=== PATIENT | female | born 1965 | race Caucasian/White ===

== ENCOUNTER 2022-08-10 10:25 | Day surgery (SDC) | payer OTHER, SELFPAY ==
[2022-08-05 10:23] VITALS: BMI 40.1
--- NOTE | 2022-08-07 10:22 | MHC.SHP ---
Pre-Procedural Eval Section A Date of Service: 08/07/22 The patient is an INPATIENT: No Changes since office visit: No Cold of Flu in the past 2 weeks, No New Medical Problems, No Changes in Medication and No Patient answered all questions The History & Physical has been completed within 30 days and I have reviewed it.: Yes Section B Chief Complaint: Age-related nuclear cataract, left eye Allergies: Allergies Allergy/AdvReac Type Severity Reaction Status Date / Time clindamycin Allergy Severe Anaphylaxis Verified 08/05/22 10:14 Penicillins Allergy Severe Swelling-fa Verified 08/05/22 10:14 ce shellfish derived Allergy Severe Anaphylaxis Verified 08/05/22 10:14 aspirin Allergy Unknown Verified 08/05/22 10:14 Iodinated Contrast Media Allergy Unknown Verified 08/05/22 10:14 [IV Contrast Dye] latex Allergy Rash Verified 08/05/22 10:15 acetazolamide AdvReac Hypotension Verified 08/05/22 10:14 [From Diamox Sequels] timolol AdvReac Chest Pain Verified 08/05/22 10:14 dye Allergy Unknown Uncoded 08/05/22 10:14 Plan Diagnosis/Plan: Unchanged I have reviewed the history and physical and performed a pertinent physical examination on my patient. No changes have occurred unless specified. Time Spent With Patient Time: Total time managing care of this patient today ____ minutes.
[2022-08-10 11:37] LABS: Glucose, Whole Blood 177 mg/dL (60-115)
[2022-08-10 11:43] VITALS: BP 160/68; PULSE 76; RESP 18; TEMP 36.2; O2SAT 96
[2022-08-10] MEDS: Tetracaine HCl/PF 0.5% Oph Sol 4 ML DROPS 1 DROP EYE-LEFT (11:46)
[2022-08-10] MEDS: Lactated Ringers 500 ML 20 ML IVCONT (11:47)
[2022-08-10] MEDS: Cyclopentolate 1 % Ophth Sol 2 ML DRPBTL 1 DROP EYE-LEFT ×3 (11:48→11:58)
[2022-08-10] MEDS: Tropicamide 1 % Ophth Sol 3 ML BTL 1 DROP EYE-LEFT ×3 (11:50→11:59)
[2022-08-10] MEDS: Ketorolac Tromethamine 0.5% Op 5 ML DROPS 1 DROP EYE-LEFT ×3 (11:51→12:00)
[2022-08-10] MEDS: Phenylephrine HCL 2.5% Oph SoL 2 ML BOTTLE 1 DROP EYE-LEFT ×3 (11:52→12:01)
--- NOTE | 2022-08-10 12:18 | P.PCNO_ITS ---
Ophthalmology Procedure Procedure Date of Service: 08/10/22 Ophthalmology Viscoelastic: Anthony Gomezt Dual Pack Pro Ophthalmology Lenses: TECJAIRO [id number] (27) Procedure Notes: PREOPERATIVE DIAGNOSIS: Decreased visual acuity left eye secondary to cataract POSTOPERATIVE DIAGNOSIS: Same PROCEDURE: Left cataract extraction with intraocular lens insertion, synichialysis & capsulotomy with vision blue dye SURGEON: Terence Gonzalez M.D. ANESTHESIA: Topical/MAC ESTIMATED BLOOD LOSS: None COMPLICATIONS: None After obtaining informed consent, the patient was brought to the operation room suite and placed in the supine position. After adequate sedation per anesthesia, topical drops of Tetracaine were given to the left eye. The eye was then prepped and draped in the usual sterile fashion. The operating room microscope was then positioned over the operative eye and a lid speculum placed. A paracentesis was created. Viscoelastic was then instilled into the anterior chamber. A three plane incision was then created temporally, utilizing a 2.85 mm keratome.An air bubble was p laced into the anterior chamber followed by instillation of vision blue dye Capsulotomy forceps were then utilized to create a circular tear capsulotomy. Viscoelastic was utilized to perform a synichialysis. Hydrodissection and hydrodelineation were carried out until adequate mobilization of the nucleus occurred. Phacoemulsification was then utilized to remove the dense central nucleus followed by removal of the cortical material utilizing the automated aspiration irrigation unit. Viscoat elastic was instilled into the posterior capsular bag followed by placement of a posterior chamber intraocular lens without difficulty. The residual Viscoat elastic was then removed utilizing the automated IA machine. The wound was check and found to be watertight. The patient tolerated the procedure well and the lid speculum was removed. Intracameral injection of Vigamox 0.1 mL followed by a subtenon injection of Kenalog-40 0.2 mL were administered. The patient will be seen in the a.m.
--- NOTE | 2022-08-10 12:24 | P.CONAN_ITS ---
[facility] Past Medical History Medical History Anxiety Cataract CHF (congestive heart failure) Depressive disorder Diabetes mellitus Diabetic neuropathy Diabetic retinopathy Environmental and seasonal allergies Glaucoma Hypertension Legally blind Numbness of finger Rubeosis iridis Family History Family history of problems with anesthesia: No Surgical History Surgical History History of vitrectomy Hx of tonsillectomy History of Problems with Anesthesia: No Social History Social History Are you a primary aged or disabled carer to a significant other at home: No Do you presently have visiting nurse or other home services: Yes (daughter is primary aged or disabled carer, lives nearby) Patient Tobacco Use Status: Former Tobacco user Quit Date: 2021 Use of substances other than those prescribed or required for medical reasons: No Are you DNR?: No Advance Directives: No Advance Directives Information Provided: Yes Advance Directives on File: No Nutrition Risks: Dental problems Poor oral hygiene: Yes (per daughter bad teeth some cracked and broken) Meds Allergies Allergy/AdvReac Type Severity Reaction Status Date / Time clindamycin Allergy Severe Anaphylaxis Verified 08/10/22 11:36 Penicillins Allergy Severe Swelling-fa Verified 08/10/22 11:36 ce shellfish derived Allergy Severe Anaphylaxis Verified 08/10/22 11:36 aspirin Allergy Unknown Verified 08/10/22 11:36 Iodinated Contrast Media Allergy Unknown Verified 08/10/22 11:36 [IV Contrast Dye] latex Allergy Rash Verified 08/10/22 11:36 acetazolamide AdvReac Hypotension Verified 08/10/22 11:36 [From Diamox Sequels] timolol AdvReac Chest Pain Verified 08/10/22 11:36 dye Allergy Unknown Uncoded 08/05/22 10:14 Active Medications: Current Medications Lactated Ringer's (Lr) 500 mls @ 20 mls/hr IVCONT .Q24H PONCHO Last Admin: 08/10/22 11:47 Dose: 20 mls/hr Povidone Iodine (Povidone Iodine 5 % Ophth Soln 30 Ml Bottle) 1 appl EYE-LEFT PREOP PRN PRN Reason: Pre-Op Surgical Implant Prophy Home Medications Medication Instructions Recorded Confirmed Last Taken Type atorvastatin 20 mg tablet 1 tab PO DAILY 08/05/22 08/05/22 Unknown History brimonidine 0.2 % eye drops 1 drp ophthalmic (eye) BID 08/05/22 08/05/22 Unknown History bupropion HCl 150 mg 24 hr tablet, 1 tab PO QAM 08/05/22 08/05/22 Unknown History extended release carbamide peroxide 6.5 % ear drops drp otic (ear) left 08/05/22 Unknown History (Ear Drops (carbamide peroxide)) cetirizine 10 mg tablet 1 tab PO DAILY 08/05/22 08/05/22 Unknown History clonazepam 0.5 mg tablet 1 tab PO BID PRN anxiety 08/05/22 08/05/22 08/10/22 07:00 History diclofenac sodium 1 % topical gel g topical BID 08/05/22 Unknown History dorzolamide 2 % eye drops 1 drp ophthalmic (eye) BID 08/05/22 08/05/22 Unknown History dulaglutide 1.5 mg/0.5 mL mg subcut QWEEK 08/05/22 08/05/22 Unknown History subcutaneous pen injector (Trulicity) famotidine 40 mg tablet 1 tab PO DAILY 08/05/22 08/05/22 Unknown History furosemide 20 mg tablet 1 tab PO DAILY 08/05/22 08/05/22 Unknown History glipizide 10 mg tablet 1 tab PO BID 08/05/22 08/05/22 Unknown History insulin degludec 200 unit/mL (3 unit subcut BID 08/05/22 Unknown History mL) subcutaneous pen (Tresiba FlexTouch U-200 insulin) insulin lispro 200 unit/mL (3 mL) subcut 08/05/22 Unknown History subcutaneous pen (Humalog KwikPen U-200 Insulin) ipratropium bromide 0.02 % inhalation 08/05/22 Unknown History solution for inhalation losartan 100 1 tab PO DAILY 08/05/22 08/05/22 Unknown History mg-hydrochlorothiazide 12.5 mg tablet metformin 500 mg tablet 1 tab PO QID 08/05/22 08/05/22 Unknown History metoprolol succinate 100 mg 1 tab PO DAILY 08/05/22 08/05/22 08/10/22 07:00 History tablet,extended release 24 hr mirtazapine 15 mg tablet 1 - 2 tab PO BEDTIME 08/05/22 08/05/22 Unknown History Exam Exam Date and Time: August 10, 2022 1224 Height,Weight and Vital Signs: Height 5 ft 7 in Weight 116.12 kg Last Vital Signs Temp 97.1 F 08/10/22 11:43 Pulse 76 08/10/22 11:43 Resp 18 08/10/22 11:43 BP 160/68 H 08/10/22 11:43 Pulse Ox 96 08/10/22 11:43 O2 Del Method 08/10/22 11:43 Pertinent Lab Results Pertinent Lab Results: Laboratory Tests 08/10/22 11:33 POC Glucose 177 H Airway Mallampati Class: II TM Dist: >3cm Neck ROM: Full Heart: rrr Lungs: cta Assessment and Plan Assessment Anesthesia Assessment: Anesthesia Plan Discussed and Chart Reviewed Final Anesthetic Review Family History of Problems with Anesthesia: No History of Problems with Anesthesia: No NPO: Yes ASA Class: III Final Preanesthetic Review: No Changes in Pt Med Stat, Meds/Allgs Chart Reviewed and Consent Obtained/Reviewed Patient Risk: Intermediate Procedure Risk: Low Anesthetic Plan Anesthetic Plan: MAC: Disposition: Standard PACU
[2022-08-10 12:54] VITALS: BP 164/77; PULSE 71; RESP 16; TEMP 36.6; O2SAT 96
== END 2022-08-10 13:00 | disposition home or self-care (01) ==
PROVIDERS: PCP Physician Assistant Medical; Visit Provider Ophthalmology
PROC: (CPT 66985; principal; 2022-08-10 13:00)
DX: H25.12 Age-related nuclear cataract, left eye (principal); H54.7 Unspecified visual loss; E11.319 Type 2 diabetes mellitus with unspecified diabetic retinopathy without macular edema; H40.89 Other specified glaucoma; Z83.511 Family history of glaucoma; E11.40 Type 2 diabetes mellitus with diabetic neuropathy, unspecified; I11.0 Hypertensive heart disease with heart failure; I50.9 Heart failure, unspecified; J45.40 Moderate persistent asthma, uncomplicated; Z79.4 Long term (current) use of insulin; Z79.899 Other long term (current) drug therapy; Z88.0 Allergy status to penicillin; Z88.1 Allergy status to other antibiotic agents; Z91.041 Radiographic dye allergy status; Z87.891 Personal history of nicotine dependence
CPT/HCPCS: 66984; 82947; J2250; J3301; V2632

== ENCOUNTER 2023-03-29 11:59 | Outpatient (REF) | payer MEDICAID, SELFPAY ==
[2023-03-29 12:15] VITALS: BMI 39.8
[2023-03-29 13:13] VITALS: BP 171/84; PULSE 70; RESP 16; TEMP 36.2; O2SAT 98
== END 2023-03-29 12:00 | disposition home or self-care (01) ==
LOC: HO.MS 11:59
PROVIDERS: PCP Physician Assistant Medical; Visit Provider Ophthalmology
PROC: (CPT 66821; principal; 2023-03-29 13:00)
DX: H26.492 Other secondary cataract, left eye (principal); I10 Essential (primary) hypertension; E11.9 Type 2 diabetes mellitus without complications
CPT/HCPCS: 66821

== ENCOUNTER 2023-04-05 08:11 | Day surgery (SDC) | payer MEDICAID, SELFPAY ==
[2023-04-02 11:06] VITALS: BMI 45.9
--- NOTE | 2023-04-02 12:44 | MHC.SHP ---
Pre-Procedural Eval Section A Date of Service: 04/02/23 The patient is an INPATIENT: No Changes since office visit: No Cold of Flu in the past 2 weeks, No New Medical Problems, No Changes in Medication and No Patient answered all questions The History & Physical has been completed within 30 days and I have reviewed it.: Yes Section B Chief Complaint: Age-related nuclear cataract, right eye Allergies: Allergies Allergy/AdvReac Type Severity Reaction Status Date / Time aspirin Allergy Severe Anaphylaxis Verified 04/02/23 11:06 clindamycin Allergy Severe Anaphylaxis Verified 04/02/23 11:06 Iodinated Contrast Media Allergy Severe Anaphylaxis Verified 04/02/23 11:06 [IV Contrast Dye] Penicillins Allergy Severe Swelling-fa Verified 04/02/23 11:06 ce shellfish derived Allergy Severe Anaphylaxis Verified 04/02/23 11:06 epinephrine Allergy Unknown Verified 04/02/23 11:06 erythromycin base Allergy Unknown Verified 04/02/23 11:06 insulin glargine Allergy excessive Verified 04/02/23 11:06 sweating, vertigo, bloody eyes latex Allergy Rash Verified 08/10/22 11:36 acetazolamide AdvReac Hypotension Verified 08/10/22 11:36 [From Diamox Sequels] empagliflozin AdvReac vaginal Verified 04/02/23 11:06 itching, dysuria timolol AdvReac Chest Pain Verified 04/02/23 11:06 dye Allergy Unknown Uncoded 08/05/22 10:14 Plan Diagnosis/Plan: Unchanged I have reviewed the history and physical and performed a pertinent physical examination on my patient. No changes have occurred unless specified. Time Spent With Patient Time: Total time managing care of this patient today ____ minutes.
[2023-04-05 08:40] LABS: Glucose, Whole Blood 170 mg/dL (60-115)
[2023-04-05 08:41] VITALS: BP 174/85; PULSE 76; RESP 20; TEMP 36.6; O2SAT 98
--- NOTE | 2023-04-05 09:01 | P.CONAN_ITS ---
HPI - Anesthesia Eval Consult details Narrative: 58 F for right cataract extraction PMFSH Past Medical History Medical History Legally blind Cataract Rubeosis iridis Glaucoma Diabetic retinopathy Depressive disorder Anxiety Numbness of finger Diabetic neuropathy CHF (congestive heart failure) Hypertension Diabetes mellitus Environmental and seasonal allergies Functional capacity: uses cane/walker Family History Family history of problems with anesthesia: No Surgical History Surgical History (Updated 04/02/23 @ 11:14 by Nguyen Huerta RN) H/O cataract extraction Hx of tonsillectomy History of vitrectomy History of Problems with Anesthesia: No Social History Social History Are you a primary aged or disabled care worker to a significant other at home: No Do you presently have visiting nurse or other home services: Yes (daughter is primary aged or disabled care worker, lives nearby) Patient Tobacco Use Status: Former Tobacco user Quit Date: 2021 Are you DNR?: No Advance Directives: No Advance Directives Information Provided: Yes Meds Allergies Allergy/AdvReac Type Severity Reaction Status Date / Time aspirin Allergy Severe Anaphylaxis Verified 04/02/23 11:06 clindamycin Allergy Severe Anaphylaxis Verified 04/02/23 11:06 Iodinated Contrast Media Allergy Severe Anaphylaxis Verified 04/02/23 11:06 [IV Contrast Dye] Penicillins Allergy Severe Swelling-fa Verified 04/02/23 11:06 ce shellfish derived Allergy Severe Anaphylaxis Verified 04/02/23 11:06 epinephrine Allergy Unknown Verified 04/02/23 11:06 erythromycin base Allergy Unknown Verified 04/02/23 11:06 insulin glargine Allergy excessive Verified 04/02/23 11:06 sweating, vertigo, bloody eyes latex Allergy Rash Verified 08/10/22 11:36 acetazolamide AdvReac Hypotension Verified 08/10/22 11:36 [From Diamox Sequels] empagliflozin AdvReac vaginal Verified 04/02/23 11:06 itching, dysuria timolol AdvReac Chest Pain Verified 04/02/23 11:06 dye Allergy Unknown Uncoded 08/05/22 10:14 Home Medications Medication Instructions Recorded Confirmed Last Taken Type atorvastatin 20 mg tablet 1 tab PO DAILY 08/05/22 04/02/23 Unknown History brimonidine 0.2 % eye drops 1 drp ophthalmic (eye) BID 08/05/22 08/05/22 Unknown History bupropion HCl 150 mg 24 hr tablet, 1 tab PO QAM 08/05/22 04/02/23 Unknown History extended release carbamide peroxide 6.5 % ear drops drp otic (ear) left 08/05/22 Unknown History (Ear Drops (carbamide peroxide)) cetirizine 10 mg tablet 1 tab PO DAILY 08/05/22 04/02/23 Unknown History clonazepam 0.5 mg tablet 1 tab PO BID PRN anxiety 08/05/22 04/02/23 04/05/23 Hi story diclofenac sodium 1 % topical gel g topical BID 08/05/22 Unknown History dorzolamide 2 % eye drops 1 drp ophthalmic (eye) BID 08/05/22 08/05/22 Unknown History dulaglutide 1.5 mg/0.5 mL mg subcut QWEEK 08/05/22 08/05/22 Unknown History subcutaneous pen injector (Trulicity) famotidine 40 mg tablet 1 tab PO DAILY 08/05/22 04/02/23 Unknown History furosemide 20 mg tablet 1 tab PO DAILY 08/05/22 04/02/23 Unknown History glipizide 10 mg tablet 1 tab PO BID 08/05/22 08/05/22 Unknown History insulin degludec 200 unit/mL (3 unit subcut BID 08/05/22 Unknown History mL) subcutaneous pen (Tresiba FlexTouch U-200 insulin) insulin lispro 200 unit/mL (3 mL) subcut 08/05/22 Unknown History subcutaneous pen (Humalog KwikPen U-200 Insulin) ipratropium bromide 0.02 % inhalation 08/05/22 Unknown History solution for inhalation losartan 100 1 tab PO DAILY 08/05/22 04/02/23 Unknown History mg-hydrochlorothiazide 12.5 mg tablet metformin 500 mg tablet 1 tab PO QID 08/05/22 04/02/23 Unknown History metoprolol succinate 100 mg 1 tab PO DAILY 08/05/22 04/02/23 04/05/23 History tablet,extended release 24 hr mirtazapine 15 mg tablet 1 - 2 tab PO BEDTIME 08/05/22 04/02/23 Unknown History Exam Exam Date and Time: April 05, 2023900 Height,Weight and Vital Signs: Height 5 ft 3 in Weight 117.571 kg Last Vital Signs Temp 98 F 04/05/23 08:41 Pulse 76 04/05/23 08:41 Resp 20 04/05/23 08:41 BP 174/85 H 04/05/23 08:41 Pulse Ox 98 04/05/23 08:41 O2 Del Method Room Air 04/05/23 08:41 Pertinent Lab Results Pertinent Lab Results: Laboratory Tests 04/05/23 08:37 POC Glucose 170 H Airway Mallampati Class: IV Assessment and Plan Assessment Anesthesia Assessment: Anesthesia Plan Discussed and Chart Reviewed Final Anesthetic Review Family History of Problems with Anesthesia: No History of Problems with Anesthesia: No NPO: Yes ASA Class: III Final Preanesthetic Review: Meds/Allgs Chart Reviewed, Consent Obtained/Reviewed and Anes Risks/Benef Reviewed Patient Risk: Intermediate Procedure Risk: Intermediate Anesthetic Plan Anesthetic Plan: MAC: and Agree w/ Assess. and Plan Disposition: Standard PACU
--- NOTE | 2023-04-05 09:53 | HO.PNOPHT ---
Ophthalmology Procedure Procedure Date of Service: 04/05/23 Ophthalmology Viscoelastic: Healadrainna Gomezt Dual Pack Pro Ophthalmology Lenses: TECNIS [id number] (26.5) Procedure Notes: PREOPERATIVE DIAGNOSIS: Decreased visual acuity right eye secondary to cataract POSTOPERATIVE DIAGNOSIS: Same PROCEDURE: Right cataract extraction with intraocular lens insertion with synichialysis SURGEON: Terence Gonzalez M.D. ANESTHESIA: Topical/MAC ESTIMATED BLOOD LOSS: None COMPLICATIONS: None After obtaining informed consent, the patient was brought to the operating room suite and placed in the supine position. After adequate sedation per anesthesia, topical drops of Tetracaine were given to the right eye. The eye was then prepped and draped in the usual sterile fashion. The operating room microscope was then positioned over the operative eye and a lid speculum placed. A paracentesis was created. Viscoelastic was then instilled into the anterior chamber preforming a synichialysis. A three plane incision was then created temporally, utilizing a 2.85 mm keratome. Capsulotomy forceps were then utilized to create a circular tear capsulotomy. Hydrodissection and hydrodelineation were carried out until adequate mobilization of the nucleus occurred. Phacoemulsification was then utilized to remove the dense central nucleus followed by removal of the cortical material utilizing the automated aspiration irrigation unit. Viscoelastic was instilled into the posterior capsular bag followed by placement of a posterior chamber intraocular lens without difficulty. The residual Viscoelastic was then removed utilizing the automated IA machine. The wound was checked and found to be watertight. The patient tolerated the procedure well and the lid speculum was removed. Intracameral injection of Vigamox 0.1 mL followed by a subtenon injection of Kenalog-40 0.2 mL were administered. The patient will be seen in the a.m.
[2023-04-05 10:18] VITALS: BP 173/88; PULSE 72; RESP 17; TEMP 36.4; O2SAT 99
== END 2023-04-05 10:35 | disposition home or self-care (01) ==
PROVIDERS: PCP Physician Assistant Medical; Visit Provider Ophthalmology
PROC: (CPT 66985; principal; 2023-04-05 10:00)
DX: H25.11 Age-related nuclear cataract, right eye (principal); H54.7 Unspecified visual loss; E11.9 Type 2 diabetes mellitus without complications; I11.0 Hypertensive heart disease with heart failure; I50.9 Heart failure, unspecified; J45.909 Unspecified asthma, uncomplicated; Z87.891 Personal history of nicotine dependence; Z79.899 Other long term (current) drug therapy; Z79.4 Long term (current) use of insulin
CPT/HCPCS: 66984; 82947; J2250; J3010; J3301; V2632

== ENCOUNTER 2025-06-07 08:50 | Outpatient (AMB) | payer MEDICARE, MEDICAID, SELFPAY ==
--- NOTE | 2025-06-07 08:53 | MHC.OFFVIS ---
Vital Signs 06/07/25 08:58 Height 5 ft 7 in Weight 250 lb BMI 39.2 BP 214/100 H Blood Pressure Location Lt brachial Position Sitting Pulse 80 Pulse Source Pulse Oximeter Pulse Oximetry (%) 97 Oxygen Delivery Method Room Air Intake Visit Reasons: Diabetic Polyneuropathy Intake Note: Pain today 04/27 [facility] [employer] Required: No [facility] Name: Freddy- Daughter Accompanied by: Daughter Allergies aspirin Allergy (Severe, Verified 06/07/25 09:07) Anaphylaxis clindamycin Allergy (Severe, Verified 06/07/25 09:07) Anaphylaxis Iodinated Contrast Media (IV Contrast Dye) Allergy (Severe, Verified 06/07/25 09:07) Anaphylaxis Penicillins Allergy (Severe, Verified 06/07/25 09:07) Swelling-face shellfish derived Allergy (Severe, Verified 04/02/23 11:06) Anaphylaxis epinephrine Allergy (Verified 06/07/25 09:07) Unknown erythromycin base Allergy (Verified 04/02/23 11:06) Unknown insulin glargine Allergy (Verified 06/07/25 09:07) excessive sweating, vertigo, bloody eyes latex Allergy (Verified 06/07/25 09:07) Rash acetazolamide (From Diamox Sequels) Adverse Reaction (Verified 08/10/22 11:36) Hypotension empagliflozin Adverse Reaction (Verified 04/02/23 11:06) vaginal itching, dysuria timolol Adverse Reaction (Verified 04/02/23 11:06) Chest Pain dye Allergy (Uncoded 08/05/22 10:14) Unknown HPI Comments Details: The patient is a 60 year old individual presenting for management of chronic painful diabetic neuropathy, which began in March 2019 and has worsened over time. The pain is constant, occurs all day but is more severe at night, and affects sleep. The patient describes the pain as burning and tingling, and it extends up to the middle of the lower legs. The patient's last HbA1c was 9.0. For pain management, the patient has tried a lidocaine patch and Tylenol, which provides minimal relief. A past trial of gabapentin in [place] was discontinued due to gastrointestinal side effects, including vomiting. The patient's past medical history is significant for being legally blind with a history of cataract surgery on both eyes, eye shunts, and glaucoma. The patient reports a history of eye bleeds with movement, requiring sleep with the head elevated. Other comorbidities include asthma, congestive heart failure, hypertension, depression, and anxiety, for which the patient sees a psychiatrist. The patient also reports occasional back pain. - Onset and Timing: The pain started in March 2019 and is constant throughout the day, worsening at night. - Quality and Character: Described as burning, tingling, sharp, throbbing, pinching, cramping, tight, tugging, and a cold or freezing sensation. - Primary Location and Radiation: The pain affects both feet and extends up to the middle of the lower legs. - Functional Interference: The pain significantly disrupts sleep. - Affect: The patient's chronic pain interferes with sleep. - Analgesia: The patient is currently using a lidocaine patch, which is only slightly effective. - Adverse Effects: A previous trial of gabapentin was stopped due to gastrointestinal side effects, including vomiting and gastritis. - Activities of Daily Living: The patient is unable to sleep due to the pain. - Aberrant Drug Related Behaviors: No aberrant drug-related behaviors were discussed. [facility] Medical History (Updated 06/08/25 @ 08:13 by AUGUSTINE Rivas) Low back pain Dermatophytosis of nail Pain in toe of left foot Pain in toe of right foot Legally blind Cataract Rubeosis iridis Glaucoma Diabetic retinopathy Depressive disorder Anxiety Numbness of finger Diabetic neuropathy CHF (congestive heart failure) Hypertension Diabetes mellitus Environmental and seasonal allergies Surgical History H/O cataract extraction Hx of tonsillectomy History of vitrectomy Social History Are you a primary long term acute care registered nurse to a significant other at home: No Do you presently have visiting nurse or other home services: Yes (daughter is primary long term acute care registered nurse, lives nearby) Alcohol intake: never Patient Tobacco Use Status: Former Tobacco user Review of Systems Const Details: - Ophthalmologic: Reports being legally blind with a history of cataract surgery, glaucoma, and shunts in the eyes. - Gastrointestinal: Reports a history of vomiting and gastritis with gabapentin use. - Musculoskeletal: Reports occasional back and right knee pain. - Neurological: Reports constant, bilateral foot pain that worsens at night and interferes with sleep. - The pain is described as burning, tingling, sharp, throbbing, pinching, cramping, and is associated with a cold sensation, extending to the mid-lower leg. - Psychiatric: Reports depression and anxiety and is followed by a Psychiatrist. - Integumentary: Denies any open wounds or rash on the feet. All systems reviewed & are unremarkable except as noted in HPI and below Physical Exam Vital Signs: Last Vital Signs Pulse 80 06/07/25 08:58 BP 214/100 H 06/07/25 08:58 Pulse Ox 97 06/07/25 08:58 Oxygen Delivery Method Room Air 06/07/25 08:58 BMI result Body Mass Index 39.2 General: Appears afebrile. Alert and oriented. Mood and affect appropriate. Follows and participates in conversation appropriately. Respiratory effort is unlabored. No cough. Able to transition from sit to stand unassisted. Uses cane with ambulation. Ambulates with bilaterally normal heel strike and toe off. Back/Spine/Pelvis Cervical Spine: cervical ROM normal, cervical muscular tenderness and No Cervical spine tenderness Thoracic/Lumbar Spine: thoracic and lumbar spine normal to inspection, No Thoracic/lumbar spine scar(s), Lasegue's sign negative, straight leg raise negative bilaterally, pain with thoraco-lumbar ROM, thoraco-lumbar ROM limited, No thoracic spinal tenderness and No lumbar spinal tenderness Extrem Other: There is a decreased sensation over the soles of both feet and toes. Reports numbness, burning, tingling and bilateral foot pain, worse at night time. No breaks in the skin. No soft tissue swelling or warmth. +2 pedal pulses bilaterally. General: Yes capillary refill normal, Yes no clubbing, cyanosis or edema and Yes no calf tenderness Results Reviewed Results Reviewed: No imaging reports or EMG studies are available for review today. Assessment & Plan Assessment & Plan (1) Chronic painful diabetic neuropathy: Code(s): E11.40 - Type 2 diabetes mellitus with diabetic neuropathy, unspecified Category: Medical (2) Chronic pain of both feet: Code(s): M79.671 - Pain in right foot; M79.672 - Pain in left foot; G89.29 - Other chronic pain Category: Medical (3) Low back pain: Code(s): M54.50 - Low back pain, unspecified Category: Medical Plan Discuss risks and benefits of different treatment options including epidural steroid injections, topical 8% capsaicin application and spinal cord stimulation, contingent improvement in the patient's glycemic control to an HbA1c of less than 7.5 for interventional treatments. The plan for managing the patient's chronic painful diabetic neuropathy was discussed. Qutenza, an 8% capsaicin topical patch administered every three months, was offered as a treatment option. However, this procedure is contingent upon insurance approval. If Qutenza is approved, the patient will be prescribed EMLA cream to apply at home before the procedure. The patient and family were provided with informational brochures on Qutenza and SCS trial in both [place] and Sinhala. Duloxetine was suggested as an oral medication that could help both the neuropathy and depression, though it was noted that it only comes in capsule form, which may be an issue for the patient. All questions and concerns have been answered and patient agreed with the treatment plan. Follow up for Qutenza and sooner as needed. Patient was informed and verbally consented to the use of an ambient scribe for clinic note documentation during this visit. Coding Level of Care Code New Pt Level 4 (88309) Diagnoses Chronic painful diabetic neuropathy E11.40 Chronic pain of both feet M79.671; M79.672; G89.29 Low back pain M54.50
[2025-06-07 08:58] VITALS: BP 214/100; PULSE 80; O2SAT 97; BMI 39.2
--- OUTSIDE RECORDS SUMMARY | 2025-06-07 10:23 | XMS_ITS | Data Portability ---
Author Organization [place] - [facility], Allergy Address [address] [address] Assessment Encounter Date Assessment Date Assessment LastModified by Organization Details LastModified Time 12/29/2024 12/29/2024 59-year-old alissa james presents for evaluation of left-sided hearing loss. Otologic exam is fairly unremarkable. Audiometric testing was obtained today showing profound hearing loss of the left ear. Mild mixed hearing loss on the right side. Results were reviewed with patient and her daughter. Given significant asymmetry I would highly recommend an MRI of the IAC to rule out retrocochlear pathology. Patient is very hesitant to have MRI done with her eye history. She has been cleared to have an MRI by her hotel or motel receptionist but she is claustrophobic. She does not want to travel for open MRI. Offered a CT instead though it is less sensitive for retrocochlear pathology. She declines this option as well. She will call if she reconsiders these options. Would recommend repeat audiometric testing in 6 months to ensure stability. She would be a candidate for a cochlear implant but this would not be covered by her Medicare insurance. Instead, recommended cross versus by cross and she was provided a copy of her hearing test along with medical clearance. Her daughter will help her work through these options. Will call if she has any other acute changes in hearing. All questions were answered. [email or web address] Not available 12/29/2024 11:46:45 12/29/2024 12/29/2024 Follow up with referring provider. [email or web address] Not available 12/29/2024 10:36:08 Plan of Treatment Reminders Order Date Submit Date Provider Last Modified By Organization Details Last Modified Time Details Appointments Hearing Test 2025 11:00A M Hearing Test Not available Not available Not available Establish ed 15 2025 11:30A M MAURY DEAN PA-C Not available Not available Not available Lab None recorded. Referral None recorded. Procedures None recorded. Surgeries None recorded. Imaging None recorded. Medication Orders None recorded. Patient TargetsNo targets recorded. Patient InstructionsNo instructions recorded. Reason for Referral None Reported. Results Created Date Observation Date Name Description Value Unit Range Abnormal Flag Note LastModifiedBy Organization Detail LastModifiedTime 12/30/19 25 audio gram No observ ation record ed. BARCODE Not Available 2024 14:43:42 Result Notes None recorded. Problems Name Problem SNOMED Code Status Onset Date Resolution Date Notes Provider Name and Address Organization Details Recorded Time Mixed conductive AND sensorineural hearing loss 85636976 Active 2024 GABBI SILVA MA, [facility] [address] [place] [address], [place], [address], [facility] [place] [facility] 10:38:05 Bilateral hearing loss 21005104 Active 2024 GABBI SILVA MA, [place] [address], [place], [address], [facility] [place] [facility] 5 10:38:35 Problem Notes None recorded. Procedures Surgical History Date Name Laterality Status Provider Name and Address Organization Details Recorded Time 12/29/2024 Comp Audio with Tymps - 31719 & 88301 completed GABBI SILVA [facility], [facility] [address] [place] [address],[address], [address], [facility] [place] [facility] 12/29/2024 10:36:08 Imaging Results None recorded. Procedure Notes None recorded. Medical Equipment None Reported. Allergies Allergen ID Allergen Name Allergen Category Reaction Reaction Severity Criticality Documentation Date Start Date Code Code System Note Provider Name and Address Organization Details Recorded Time 463253 aspirin medicatio n Not available Not available Not available 12/29/2024 1191 RxNorm Liliana norman [place] [facility] 5 10:29:09 700364 clindamyc in Not available Not available Not available Not available 12/29/2024 2582 RxNorm Liliana norman [place] - [facility] 10:29:15 776469 Iodinated contrast media (substanc e) medicatio n Not available Not available Not available 12/29/2024 36957 2003 SNOMED Liliana Garcia emerson, [place] - [facility] 10:29:25 391135 Product containin g penicilli n (product) medicatio n Not available Not available Not available 12/29/2024 46404 8001 SNOMED Liliana Garcia em[place], [place] - [facility] 10:29:31 550306 empaglifl ozin medicatio n Not available Not available Not available 12/29/2024 41378 53 RxNorm Liliana Garcia em[place], [place] - [facility] 10:29:40 338332 epinephri ne medicatio n Not available Not available Not available 12/29/2024 3992 RxNorm Liliana Garcia em[place], [place] - [facility] 10:29:46 845669 erythromy madhu medicatio n Not available Not available Not available 12/29/2024 4053 RxNorm Liliana Garcia emerson, [place] - [facility] 10:29:58 435587 insulin glargine medicatio n Not available Not available Not available 12/29/2024 28823 3 RxNorm Liliana Garcia emerson, [place] - [facility] 10:30:07 956697 timolol medicatio n Not available Not available Not available 12/29/2024 73667 RxNorm Liliana Garcia emerson, [place] - [facility] 10:30:14 220708 shellfish derived food,medi cation Not available Not available Not available 12/29/2024 Liliana Jose emerson, [facility] [place] [facility] 10:30:21 Medications Name Sig Start Date Stop Date Status Note LastModified by Organization Details LastModified Time metformin 500 mg tablet TAKE 1 TABLET BY MOUTH 4 (FOUR) TIMES DAILY BEFORE MEALS AND AT BEDTIME 12/29 completed Not Available Not Available Not Available atorvastati n 20 mg tablet TAKE 1 TABLET BY MOUTH EVERY EVENING FOR colestero l active Not Available Not Available No t Available cetirizine 10 mg tablet TAKE 1 TABLET BY MOUTH ONCE DAILY active Not Available Not Available No t Available famotidine 40 mg tablet TAKE 1 TABLET BY MOUTH ONCE DAILY active Not Available Not Available No t Available clonazepam 0.5 mg tablet TAKE 1 TABLET BY MOUTH two (2) times a day NEEDED FOR ANXIETY active Not Available Not Available No t Available Alcohol Pads USE TO TEST FINGER STICK BLOOD SUGAR 3 (THREE) TIMES A DAY 12/29 completed Not Available Not Available Not Available metoprolol succinate ER 100 mg tablet,exte nded release 24 hr TAKE 1 TABLET BY MOUTH EVERY MORNING active Not Available Not Available No t Available sulfamethox azole 800 mg-trimetho prim 160 mg tablet TAKE 1 TABLET BY MOUTH two (2) times a day FOR 3 DAYS 12/29 completed Not Available Not Available Not Available furosemide 20 mg tablet TAKE 1 TABLET BY MOUTH EVERY MORNING active Not Available Not Available No t Available mirtazapine 15 mg tablet TAKE 1 TO 2 TABLETS BY MOUTH AT BEDTIME 12/29 completed Not Available Not Available Not Available insulin lispro (U-100) 100 unit/mL subcutaneou s solution Use with CSII up to 100 units daily with Omnipod 5 will complete PA if needed, replacing Fiasp vials 12/29 completed Not Available Not Available Not Available polyethylen e glycol 3350 17 gram/dose oral powder MIX 17 gramos IN WATER AND DRINK BY MOUTH ONCE DAILY active Not Available Not Available No t Available metformin ER 500 mg tablet,exte nded release 24 hr TAKE 2 TABLETS BY MOUTH two (2) times a day WITH A MEAL active Not Available Not Available No t Available ipratropium bromide 0.02 % solution for inhalation INHALE THE CONTENT OF 1 VIAL (2.5mls) VIA NEBULIZER 4 (FOUR) TIMES DAILY active Not Available Not Available No t Available buspirone 15 mg tablet TAKE 1 TABLET BY MOUTH ONCE DAILY active Not Available Not Available No t Available neomycin-po lymyxin-hyd rocort 3.5 mg-10,000 unit/mL-1 % ear drops,susp INSTILL 4 DROP INTO THE LEFT EAR 3 (THREE) TIMES A DAY FOR 10 DAYS active Not Available Not Available No t Available insulin lispro (U-100) 100 unit/mL subcutaneou s pen Inject 5-35 Units into the skin 3 (three) times daily before meals According to sliding scale (max 105 units/day ) keep on hold until pt calls if Omnipod is nonfuncti onal active Not Available Not Available No t Available bupropion HCl XL 150 mg 24 hr tablet, extended release TAKE 1 TABLET BY MOUTH ONCE DAILY IN THE MORNING active Not Available Not Available No t Available Novofine Autocover 30 gauge x 1/3 needle USE 4 (FOUR) TIMES DAILY BEFORE MEALS AND AT BEDTIME active Not Available Not Available No t Available losartan 100 mg-hydrochl orothiazide 12.5 mg tablet TAKE 1 TABLET BY MOUTH EVERY MORNING FOR presion active Not Available Not Available No t Available BD Ultra-Fine Short Pen Needle 31 gauge x 5/16 Use to administe r insulin up to 4 times daily (BD Ultra Fine Short 8 mm) 12/29 completed Not Available Not Available Not Available FreeStyle Lite Strips USE TO TEST FINGER STICK BLOOD SUGAR 3 (THREE) TIMES A DAY 12/29 completed Not Available Not Available Not Available diclofenac 1 % topical gel APPLY TO THE AFFECTED AREA TOPICALLY two (2) times a day active Not Available Not Available No t Available Comfort EZ Insulin Syringe 0.5 mL 31 gauge x 5/16 USE DIRECTED UP TO 3 (THREE) TIMES A DAY 12/29 completed Not Available Not Available Not Available Inject Ease Lancets 28 gauge USE TO TEST FINGER STICK BLOOD SUGAR 3 (THREE) TIMES A DAY 12/29 completed Not Available Not Available Not Available Farxiga 5 mg tablet TAKE 1 TABLET BY MOUTH EVERY MORNING. TAKE WITH MUCHO WATER active Not Available Not Available No t Available insulin degludec (U-200) 200 unit/mL (3 mL) subcutaneou s pen INJECT 76 UNITS SUBCUTANE OUSLY two (2) times a day active Not Available Not Available No t Available Fiasp U-100 Insulin 100 unit/mL subcutaneou s solution Use with CSII up to 100 units daily with Omnipod 5 use these for Omnipod active Not Available Not Available No t Available Fiasp FlexTouch U-100 Insulin 100 unit/mL (3 mL) subcutaneou s pen INJECT 5 TO 35 UNITS SUBCUTANE OUSLY 3 (THREE) TIMES A DAY BEFORE MEALS UP TO 105 UNITS ONCE DAILY active Not Available Not Available No t Available Dexcom G6 Transmitter device APPLY TOPICALLY EVERY 3 12/29 completed Not Available Not Available Not Available Trulicity 3 mg/0.5 mL subcutaneou s pen injector INJECT THE CONTENT OF 1 syringe SUBCUTANE OUSLY EACH WEEK 12/29 completed Not Available Not Available Not Available Mounjaro 7.5 mg/0.5 mL subcutaneou s pen injector INJECT THE CONTENT OF 1 syringe SUBCUTANE OUSLY EACH WEEK (EVERY WEDNESDAY) 12/29 completed Not Available Not Available Not Available Mounjaro 5 mg/0.5 mL subcutaneou s pen injector INJECT THE CONTENT OF 1 syringe SUBCUTANE OUSLY EACH WEEK 12/29 completed Not Available Not Available Not Available Mounjaro 15 mg/0.5 mL subcutaneou s pen injector INJECT THE CONTENT OF 1 syringe SUBCUTANE OUSLY EVERY WEDNESDAY active Not Available Not Available No t Available Mounjaro 10 mg/0.5 mL subcutaneou s pen injector INJECT THE CONTENT OF 1 syringe SUBCUTANE OUSLY EACH WEEK STOP 15MG 12/29 completed Not Available Not Available Not Available Dexcom G7 Sensor device Apply 1 sensor to back of upper arm every 10 days. Use to check glucose at least 3 times daily. (Dexcom G7 sensors) 12/29 completed Not Available Not Available Not Available Omnipod 5 G6-G7 Intro Kit(Gen 5) subcutaneou s cartridge and controller USE DIRECTED active Not Available Not Available No t Available Omnipod 5 G6-G7 Pods (Gen 5) subcutaneou s cartridge Use to continuou sly administe r insulin as directed. Change pods every 2 days. (Omnipod 5 pods G6/G7 compatibl e) active Not Available Not Available No t Available Vitals Date Recorded Body height Body weight Provider Name and Address Organization Details Last Updated DateTime 12/29/2024 160.02 cm 53015.19 g Liliana Garcia [place] - [facility] 12/29/2024 10:32:51 Social History None recorded. Functional Status None recorded. Mental Status None recorded. Family History Nothing Reported. Medical History Condition Response Glaucoma Y Hearing Loss Y Heart Problems Y Diabetes Y Hyperlipidemia Y Asthma Y Hypertension Y Gynecological HistoryNo gynecological history recorded. Obstetrics History GPAL:G 0 P 0 0 0 0 Past Encounters Encounter ID Performer Location Encounter Start Date Encounter Closed Date Diagnosis/Indication Diagnosis SNOMED-CT Code Diagnosis ICD10 Code Diagnosis IMO Codes Diagnosis Note [id number] LOGAN MARCUS-[facility] [address] [address] 12/29/2024 09:43:59 12/29/2024 11:58:30 Bilateral hearing loss 35845083 H90.A22 [id number] Mixed cond uctive AND sensorineural hearing loss 67926544 H90.A31 [id number] GABIB SILVA MA, CCC-A [facility] [address] [address] 12/29/2024 09:40:28 12/29/2024 11:27:31 Mixed conductive AND sensorineural hearing loss 22058822 H90.A31 [id number] Audiologic al evaluation results:Ri ght ear:Mild hearing loss rising to normal thru 3000Hz, dropping to mild to severe with conductive overlay at 4000Hz with excellent word recognitio n.Left ear:Mild-m oderate dropping to severe-pro found SNHL with no measurable word recognitio n. Tympanomet ry:Right Ear:Type BLeft Ear:Type C ( -250; 0.4) Bilateral hearing loss 87365617 H90.A22 [id number] Health Concerns Section Related Observation LastModified by Organization Detai ls LastModified Time None Recorded Concern Status LastModified by Organization Details LastModified Time None Recorded Advance Directives Directive None Recorded Payers Insurance Date Sequence Insurance Name Policy Number Policy [place] Covered Member ID H[place] Member ID Guarantor Name 12/29/2024 2 [place] [id number] Ada Le [id number] Ada Le 12/29/2024 1 [place] B[place] [id number] Ada Peri Etienne [id number] Ada Mimi Notes Date Note Type Note Provider Name and Address Organization Details Recorded Time 12/29/2024 text/html Audiological Evaluation HPIReported by Patient ruptured left TM January 2023, as reported GABBI SILVA MA, CCC-A [address] [facility], [place], [address], [facility] - [facility] 12/29/2024 10:42:22 12/29/2024 text/html ROS as noted in the HPI 59-year-old female presents for evaluation of left-sided hearing loss. This hearing loss occurred roughly 2 years ago and was sudden in nature. Unfortunately an appointment was difficult to obtain. She has noticed some hearing loss on the right side but not as pronounced. Patient has significant ophthalmologic history and is visually impaired. MAURY DEAN PA-C [address] [facility], [place], [address], [facility] - [facility] 12/29/2024 11:47:03 OBGyn Episode No OBEpisode recorded.
== END 2025-06-07 09:56 | disposition home or self-care (01) ==
PROVIDERS: PCP Physician Assistant Medical; Referring Provider Podiatrist Foot & Ankle Surgery; Visit Provider Nurse Practitioner Family
DX: E11.40 Type 2 diabetes mellitus with diabetic neuropathy, unspecified (principal); M79.671 Pain in right foot; M79.672 Pain in left foot; G89.29 Other chronic pain; M54.50 Low back pain, unspecified
CPT/HCPCS: 99204

== ENCOUNTER → 2025-06-07 08:50 | Outpatient (BNVA) | payer MEDICARE, MEDICAID, SELFPAY | PROVIDERS: PCP Physician Assistant Medical; Referring Provider Podiatrist Foot & Ankle Surgery; Visit Provider Nurse Practitioner Family | DX: E11.40 Type 2 diabetes mellitus with diabetic neuropathy, unspecified (principal); M79.671 Pain in right foot; M79.672 Pain in left foot; M54.50 Low back pain, unspecified; G89.29 Other chronic pain | CPT/HCPCS: 99202 ==